=== PATIENT | female | born 1980 | race Caucasian/White ===

== ENCOUNTER 2020-10-17 16:36 | Emergency (ER) | payer OTHER ==
[~2020-10-17] VITALS: Ht 157.5 cm; Wt 103.0 kg
[2020-10-17 16:39] VITALS: Ht 157.5 cm; Wt 103.0 kg
[2020-10-17 17:28] LABS: UA SPECIFIC GRAVITY 1.015 (1.005-1.035); microscopic required? YES; urine erythrocyte TRACE (NEGATIVE)
[2020-10-17 17:33] LABS: BASOPHIL % 0.8 % (0.2-1.3); PLATELET COUNT 278 x10^3mcL (179-408); RED CELL DISTRIBUTION WIDTH 13.4 % (12.3-17.7)
[2020-10-17 17:38] LABS: CALCIUM 8.7 mg/dL (8.5-10.1); CARBON DIOXIDE 25.8 mmol/L (21-32); CREATININE SERUM 1.1 mg/dL (0.6-1.0); POTASSIUM SERUM 4.1 mmol/L (3.5-5.1)
[2020-10-17 17:43] LABS: ALBUMIN 3.6 g/dL (3.4-5.0); BILIRUBIN TOTAL 0.5 mg/dL (0.20-1.00); TOTAL PROTEIN, SERUM 7.3 g/dL (6.4-8.2)
[2020-10-17 19:30] VITALS: BP 125/69
== END 2020-10-17 19:40 | disposition home or self-care (01) ==
LOC: ED 16:36
PROVIDERS: Emergency Medicine
DX: N20.0 Calculus of kidney (principal); Z20.822 Contact with and (suspected) exposure to COVID-19
CPT/HCPCS: U0003